=== PATIENT | male | born 1945 | race Hispanic/Latino ===

== ENCOUNTER 2021-12-06 09:24 | Inpatient (IN) | payer OTHER, MEDICARE ==
[~2021-12-06] VITALS: Ht 162.6 cm; Wt 88.5 kg
[~2021-12-06 09:24] MED LIST: ASPI-556 PO; LOSA25TA41 PO; PRAV40TA3 PO; TERA5CAP4 PO; TIOT18CA3 IH
[2021-12-06] MEDS ORDERED: IPRATROPIUM/ALBUTEROL SULFATE 3 ML SOLUTION IH SCH (09:30)
[2021-12-06] MEDS ORDERED: ACETAMINOPHEN 500 MG TABLET PO SCH (09:30)
[2021-12-06 09:59] LABS: BASOPHILS % (AUTO) 0.5 % (0.0-5.0); EOSINOPHILS % (AUTO) 1.1 % (0.0-8.0); LYMPHOCYTES % (AUTO) 11.9 % (21.0-51.0); MEAN CORPUSCULAR HEMOGLOBIN 28.4 pg (27.0-33.0); MEAN CORPUSCULAR HGB CONC 30.7 g/dL (32.0-36.0); MEAN CORPUSCULAR VOLUME 92.6 fL (79-99); MONOCYTES % (AUTO) 10.1 % (3.0-13.0); NEUTROPHILS % (AUTO) 75.7 % (40.0-77.0); PLATELET COUNT (AUTO) 202 K/uL (130-400); RED BLOOD CELL COUNT(AUTO) 4.97 MIL/uL (4.50-6.20); RED CELL DISTRIBUTION WIDTH 15.5 % (11.0-15.5); WHITE BLOOD COUNT (AUTO) 8.8 K/uL (4.8-10.8)
[2021-12-06 10:18] LABS: INFLUENZA TYPE A NEGATIVE FOR TYPE A (NEG)
[2021-12-06 10:18] LABS: POTASSIUM 4.2 mmol/L (3.5-5.1)
[2021-12-06 10:20] LABS: INFLUENZA TYPE B POSITIVE FOR TYPE B (NEG)
[2021-12-06 10:20] LABS: ALBUMIN 3.2 g/dL (3.5-5.0); BILIRUBIN,TOTAL 0.6 mg/dL (0.2-1.0); TOTAL PROTEIN, SERUM 6.8 g/dL (6.0-8.3)
[2021-12-06 10:26] LABS: INR 1.07 (0.85-1.15); PROTHROMBIN TIME 11.6 SEC (9.6-11.6)
[2021-12-06 10:28] LABS: PARTIAL THROMBOPLASTIN TIME 32.4 SEC (26.3-35.5)
[2021-12-06 10:39] LABS: ABG BASE EXCESS 4.7 mmol/L (-2.0-3.0); ABG HCO3 30.3 mmol/L (21.0-28.0); ABG OXYGEN SATURATION 94.8 % (95.0-99.0); ABG PCO2 48 mmHg (35-48)
[2021-12-06] MEDS ORDERED: DEXAMETHASONE SOD PHOSPHATE 4 MG/ML 1ML VIAL IVP SCH (11:30)
[2021-12-06] MEDS ORDERED: 0.9%NACL 1000ML 1,000 ML IV SCH (12:00)
[2021-12-06] MEDS ORDERED: ONDANSETRON 4MG INJ IVP PRN (14:30)
[2021-12-06] MEDS ORDERED: MORPHINE 2 MG SYG IVP PRN (14:30)
[2021-12-06] MEDS ORDERED: CEFTRIAXONE 1G VIAL IVP SCH (14:30)
[2021-12-06] MEDS ORDERED: ACETAMINOPHEN 325 MG TAB PO PRN (14:30)
[2021-12-06] MEDS ORDERED: ACETAMINOPHEN 650 MG SUPPOSITORY RC PRN (14:30)
[2021-12-06] MEDS: AZITHROMYCIN 500MG+NS 250ML IV SCH (14:57)
[2021-12-06] MEDS: INSULIN HUMULIN R 100 UNIT/ML 3ML SQ SCH ×2 (16:30→20:10)
[2021-12-06] MEDS: ALBUTEROL 0.083% 2.5 MG/3 ML INH IH PRN (18:38)
[2021-12-06] MEDS: OSELTAMIVIR PHOSPHATE 75 MG CAP PO SCH (20:10)
[2021-12-07 01:32] LABS: APPEARANCE,URINE Clear (CLEAR); BILIRUBIN,URINE Negative (NEGATIVE); COLOR,URINE Dark Yellow (YELLOW); GLUCOSE, URINE (UA) TRACE mg/dL (NEGATIVE); KETONES,URINE Negative (NEGATIVE); LEUKOCYTE ESTERASE ,URINE Negative (NEGATIVE); NITRATE,URINE Negative (NEGATIVE); OCCULT BLOOD,URINE Negative (NEGATIVE); PROTEIN,URINE Trace mg/dL (NEGATIVE)
[2021-12-07 03:24] LABS: BASOPHILS % (AUTO) 0.1 % (0.0-5.0); HEMATOCRIT 45.5 % (42-54); LYMPHOCYTES % (AUTO) 8.7 % (21.0-51.0); MEAN CORPUSCULAR HEMOGLOBIN 29.6 pg (27.0-33.0); MEAN CORPUSCULAR HGB CONC 30.5 g/dL (32.0-36.0); MEAN CORPUSCULAR VOLUME 96.8 fL (79-99); MONOCYTES % (AUTO) 5.6 % (3.0-13.0); NEUTROPHILS % (AUTO) 84.9 % (40.0-77.0); PLATELET COUNT (AUTO) 204 K/uL (130-400); RED CELL DISTRIBUTION WIDTH 15.1 % (11.0-15.5)
[2021-12-07 03:31] LABS: CREATININE 0.9 mg/dL (0.5-1.5)
[2021-12-07] MEDS: ZOSYN 3.375GM +NS 50ML IV SCH ×3 (03:37→18:41)
[2021-12-07 03:42] LABS: MAGNESIUM 2.4 mg/dL (1.80-2.40); PHOSPHORUS 4.4 mg/dL (2.5-4.9)
[2021-12-07] MEDS: INSULIN HUMULIN R 100 UNIT/ML 3ML SQ SCH ×3 (07:30→20:38)
[2021-12-07] MEDS: DEXAMETHASONE SOD PHOSPHATE 10MG/ML 1ML VIAL IVP SCH (09:57)
[2021-12-07] MEDS: ASPIRIN 81MG CHEW TAB PO SCH (09:58)
[2021-12-07] MEDS: ENOXAPARIN SODIUM 40 MG/0.4 ML SYRINGE SQ SCH (09:58)
[2021-12-07] MEDS: OSELTAMIVIR PHOSPHATE 75 MG CAP PO SCH ×2 (09:58→20:38)
[2021-12-07] MEDS: PANTOPRAZOLE 40 MG TAB DR PO SCH (09:58)
[2021-12-07] MEDS: AZITHROMYCIN 500MG+NS 250ML IV SCH (13:49)
[2021-12-08] MEDS: ZOSYN 3.375GM +NS 50ML IV SCH (03:46)
[2021-12-08] MEDS: ALBUTEROL 0.083% 2.5 MG/3 ML INH IH PRN (06:59)
[2021-12-08] MEDS: INSULIN HUMULIN R 100 UNIT/ML 3ML SQ SCH (07:30)
[2021-12-08] MEDS: PANTOPRAZOLE 40 MG TAB DR PO SCH (08:09)
[2021-12-08] MEDS: ENOXAPARIN SODIUM 40 MG/0.4 ML SYRINGE SQ SCH (08:09)
[2021-12-08] MEDS: ASPIRIN 81MG CHEW TAB PO SCH (08:09)
[2021-12-08] MEDS: OSELTAMIVIR PHOSPHATE 75 MG CAP PO SCH (08:09)
[2021-12-08] MEDS: DEXAMETHASONE SOD PHOSPHATE 10MG/ML 1ML VIAL IVP SCH (08:09)
[2021-12-08] MEDS ORDERED: ESOM40CA54 PO (09:36)
[2021-12-08] MEDS ORDERED: FLUT1BLS3 IH (09:36)
[2021-12-08] MEDS ORDERED: AMOX-426 PO (09:41)
[2021-12-08] MEDS ORDERED: METH4TAB3 PO (09:41)
[2021-12-08] MEDS ORDERED: IPRA3AMP24 IH (09:41)
[2021-12-08 10:54] VITALS: BP 113/57
[2021-12-08] MEDS ORDERED: PANTOPRAZOLE 40 MG TAB DR PO SCH (10:55)
[2021-12-08] MEDS ORDERED: ***HM***(Fluticasone/Umeclidin/Vilanter (Trelegy Ellipta 100-62.5- IH SCH (10:56)
[2021-12-08] MEDS ORDERED: SIMVASTATIN 20 MG TABLET PO SCH (21:00)
[2021-12-09] MEDS ORDERED: PANTOPRAZOLE 40 MG TAB DR PO SCH (07:30)
[2021-12-09] MEDS ORDERED: TERAZOSIN 5MG CAP PO SCH (09:00)
[2021-12-09] MEDS ORDERED: ASPIRIN 81 MG EC TAB PO SCH (09:00)
== END 2021-12-08 11:00 | disposition home or self-care (01) | DRG 193 ==
LOC: EDH 09:24 → EDHIP 11:57 → OBSVTOIN 11:57
PROVIDERS: ADMIT Internal Medicine; ATTEND Internal Medicine
DX: J10.08 Influenza due to other identified influenza virus with other specified pneumonia (principal); J96.01 Acute respiratory failure with hypoxia; J12.9 Viral pneumonia, unspecified; J44.1 Chronic obstructive pulmonary disease with (acute) exacerbation; Z20.822 Contact with and (suspected) exposure to COVID-19; J44.0 Chronic obstructive pulmonary disease with (acute) lower respiratory infection; E78.00 Pure hypercholesterolemia, unspecified; E78.5 Hyperlipidemia, unspecified; I10 Essential (primary) hypertension; Z87.891 Personal history of nicotine dependence; Z79.82 Long term (current) use of aspirin; Z79.4 Long term (current) use of insulin
CPT/HCPCS: 36415; 36600; 71045; 71250; 80048; 80053; 81003; 82550; 82803; 82948; 83605; 83735; 83874; 84100; 84145; 84484; 85025; 85378; 85610; 85730; 87040; 87088; 87426; 87804; 93005; 94640; 94664; 94667; 94668; 99291; G0378; J0456; J0696; J1100; J1650; J1815; J2543

== ENCOUNTER → 2022-08-21 | Outpatient (CLI) | payer OTHER, MEDICARE ==
[~2022-08-21] MED LIST changes: +AMOX-426 PO; +ESOM40CA54 PO; +FLUT1BLS3 IH; +IPRA3AMP24 IH; -LOSA25TA41 PO; +METH4TAB3 PO; -TIOT18CA3 IH
== END | disposition home or self-care (01) ==
LOC: LAB 09:31
PROVIDERS: ATTEND Family Medicine
DX: R18.8 Other ascites (principal)
CPT/HCPCS: 36415; 85210

== ENCOUNTER → 2022-08-27 | Outpatient (CLI) | payer OTHER, MEDICARE | END | disposition home or self-care (01) | LOC: RAH 10:11 | PROVIDERS: ATTEND Family Medicine | DX: R10.9 Unspecified abdominal pain (principal) | CPT/HCPCS: 76700 ==

== ENCOUNTER → 2022-08-28 | Outpatient (CLI) | payer OTHER, MEDICARE ==
[2022-08-27 12:55] LABS: INR 1.29 (0.85-1.15); PROTHROMBIN TIME 13.9 SEC (9.6-11.6)
[2022-08-27 12:56] LABS: PARTIAL THROMBOPLASTIN TIME 32.7 SEC (26.3-35.5)
[~2022-08-28] MED LIST changes: +ALBUMIN (HUMAN) 25% 200 ML IV ONE
[2022-08-28 13:41] LABS: AMYLASE,BODY FLUID 13 U/L; GLUCOSE,BODY FLUID 108 mg/dL (1-40); LIPASE,BODY FLUID 25 U/L; TRIGLYCERIDES,BODY FLUID 22 mg/dL
[2022-08-28 14:20] LABS: APPEARANCE BODY FLUID CLEAR (CLEAR); COLOR,BODY FLUID YELLOW (LT YELLOW); SPECIMENTYPE,BODY FLUID ASCITES; TOTAL VOLUME,BODY FLUID 1900 mL
[2022-08-28 14:21] LABS: BODY FLUID RBC 1197 /cu. mm.; BODY FLUID WBC 193 /cu. mm.
[2022-08-28 14:43] LABS: BF LYMPHOCYTE 20 %; BF MESOTHELIAL 60 %; BF MONOCYTE 1 %
== END | disposition home or self-care (01) ==
LOC: RAH 09:36
PROVIDERS: ATTEND Family Medicine
DX: R18.8 Other ascites (principal); I10 Essential (primary) hypertension; J44.1 Chronic obstructive pulmonary disease with (acute) exacerbation; E78.5 Hyperlipidemia, unspecified; E78.00 Pure hypercholesterolemia, unspecified; Z87.891 Personal history of nicotine dependence; Z79.82 Long term (current) use of aspirin; Z79.01 Long term (current) use of anticoagulants
CPT/HCPCS: 85610; 85730; 36415; 49083; 84478; 82945; 82150; 84157; 83690; 83615; 89051; 87071; 87205; 88305; 88112; P9046; C1729; 96365

== ENCOUNTER → 2023-01-29 | Outpatient (CLI) | payer OTHER, MEDICARE ==
[~2023-01-29] MED LIST changes: -ALBUMIN (HUMAN) 25% 200 ML IV ONE; +ALBUMIN (HUMAN) 25% 200 ML IV SCH
[2023-01-29 09:04] LABS: INR 1.01 (0.85-1.15)
[2023-01-29 09:06] LABS: PARTIAL THROMBOPLASTIN TIME 30.9 SEC (26.3-35.5)
== END | disposition home or self-care (01) ==
LOC: RAH 08:23
PROVIDERS: ATTEND Family Medicine
DX: Z01.818 Encounter for other preprocedural examination (principal); R18.8 Other ascites
CPT/HCPCS: 36415; 76705; 85610; 85730

== ENCOUNTER → 2024-08-09 | Outpatient (CLI) | payer MEDICARE ==
[~2024-08-09] MED LIST changes: -ALBUMIN (HUMAN) 25% 200 ML IV SCH; -AMOX-426 PO; -ESOM40CA54 PO; +FURO20TA4 PO; +LACT10SO95 PO; -METH4TAB3 PO; +METO-408 PO; +POLY17PO4 PO; +SIME80TA13 PO; -TERA5CAP4 PO; +doCUSate SODIUM 100 MG CAP PO
[2024-08-09 16:17] LABS: BASOPHILS # (AUTO) 0.03 K/uL (0.00-0.20); BASOPHILS % (AUTO) 0.4 % (0.0-5.0); EOSINOPHILS # (AUTO) 0.19 K/uL (0.00-0.70); EOSINOPHILS % (AUTO) 2.8 % (0.0-8.0); HEMATOCRIT 46.2 % (42-54); IMMATURE GRANULOCYTE ABSOLUTE 0.04 K/uL (0-1); LYMPHOCYTES # (AUTO) 1.1 K/uL (1.0-4.8); LYMPHOCYTES % (AUTO) 16.6 % (21.0-51.0); MEAN CORPUSCULAR HEMOGLOBIN 29.5 pg (27.0-33.0); MEAN CORPUSCULAR HGB CONC 31.2 g/dL (32.0-36.0); MEAN CORPUSCULAR VOLUME 94.7 fL (79-99); MONOCYTES # (AUTO) 0.7 K/uL (0.1-1.0); MONOCYTES % (AUTO) 9.9 % (3.0-13.0); NEUTROPHILS # (AUTO) 4.8 K/uL (1.8-7.7); NEUTROPHILS % (AUTO) 69.7 % (40.0-77.0); PLATELET COUNT (AUTO) 197 K/uL (130-400); RED BLOOD CELL COUNT(AUTO) 4.88 MIL/uL (4.50-6.20); RED CELL DISTRIBUTION WIDTH 14.5 % (11.0-15.5); WHITE BLOOD COUNT (AUTO) 6.9 K/uL (4.8-10.8)
[2024-08-09 16:37] LABS: INR 1.03 (0.85-1.15); PROTHROMBIN TIME 11.1 SEC (9.6-11.6)
[2024-08-09 16:38] LABS: PARTIAL THROMBOPLASTIN TIME 29.9 SEC (26.3-35.5)
[2024-08-09 16:42] LABS: ALBUMIN 3.3 g/dL (3.5-5.0); BILIRUBIN,TOTAL 0.4 mg/dL (0.2-1.0); CREATININE 1.2 mg/dL (0.5-1.3); TOTAL PROTEIN, SERUM 6.9 g/dL (6.0-8.3)
== END | disposition home or self-care (01) ==
LOC: LAB 15:10
PROVIDERS: ATTEND Internal Medicine Gastroenterology
DX: R14.0 Abdominal distension (gaseous) (principal); Z79.899 Other long term (current) drug therapy; E88.09 Other disorders of plasma-protein metabolism, not elsewhere classified
CPT/HCPCS: 36415; 80053; 82784; 83516; 85025; 85610; 85730; 86231; 86364

== ENCOUNTER 2024-09-13 00:12 | Emergency (ER) | payer MEDICARE ==
[~2024-09-13] VITALS: Ht 167.6 cm; Wt 88.9 kg
[2024-09-13] MEDS: ASPIRIN 81MG CHEW TAB PO ONE (00:43)
[2024-09-13 00:50] LABS: BASOPHILS # (AUTO) 0.02 K/uL (0.00-0.20); BASOPHILS % (AUTO) 0.2 % (0.0-5.0); EOSINOPHILS # (AUTO) 0.05 K/uL (0.00-0.70); EOSINOPHILS % (AUTO) 0.5 % (0.0-8.0); HEMATOCRIT 45.6 % (42-54); IMMATURE GRANULOCYTE ABSOLUTE 0.03 K/uL (0-1); LYMPHOCYTES # (AUTO) 0.4 K/uL (1.0-4.8); LYMPHOCYTES % (AUTO) 4.7 % (21.0-51.0); MEAN CORPUSCULAR HEMOGLOBIN 28.1 pg (27.0-33.0); MEAN CORPUSCULAR HGB CONC 31.1 g/dL (32.0-36.0); MEAN CORPUSCULAR VOLUME 90.3 fL (79-99); MONOCYTES # (AUTO) 0.7 K/uL (0.1-1.0); MONOCYTES % (AUTO) 7.2 % (3.0-13.0); NEUTROPHILS # (AUTO) 8.1 K/uL (1.8-7.7); NEUTROPHILS % (AUTO) 87.1 % (40.0-77.0); PLATELET COUNT (AUTO) 184 K/uL (130-400); RED BLOOD CELL COUNT(AUTO) 5.05 MIL/uL (4.50-6.20); RED CELL DISTRIBUTION WIDTH 14.5 % (11.0-15.5); WHITE BLOOD COUNT (AUTO) 9.3 K/uL (4.8-10.8)
[2024-09-13 00:51] LABS: CREATININE 1.2 mg/dL (0.5-1.3); POTASSIUM 3.9 mmol/L (3.5-5.1)
[2024-09-13 01:18] LABS: B-TYPE NATRIURETIC PEPTIDE 24 pg/mL (0-100)
[2024-09-13 01:23] LABS: WBC MORPHOLOGY CONSISTENT W/DIFF
[2024-09-13] MEDS: traMADol HCL 50 MG TABLET PO ONE (02:51)
[2024-09-13] MEDS: furoSEMIDE 40MG VIAL IV ONE (02:52)
[2024-09-13 02:59] VITALS: BP 152/65; PULSE 98; RESP 18; TEMP 98.5; O2SAT 96
[2024-09-13 03:40] LABS: APPEARANCE,URINE CLEAR (CLEAR); BILIRUBIN,URINE NEGATIVE (NEGATIVE); COLOR,URINE YELLOW (YELLOW); GLUCOSE, URINE (UA) NEGATIVE (NEGATIVE); KETONES,URINE NEGATIVE (NEGATIVE); LEUKOCYTE ESTERASE ,URINE NEGATIVE Leu/uL (NEGATIVE); NITRATE,URINE NEGATIVE (NEGATIVE); OCCULT BLOOD,URINE NEGATIVE (NEGATIVE); PROTEIN,URINE 30 mg/dL (NEGATIVE); UROBILINOGEN,URINE 0.2 mg/dL (0.2-1.0)
[2024-09-13 03:42] LABS: ADD UA MICROSCOPIC YES
[2024-09-13 03:45] LABS: MUCUS,URINE RARE LPF (None Seen); RBC,URINE 0-1 /HPF (0-1)
== END 2024-09-13 03:00 | disposition home or self-care (01) ==
LOC: EDH 00:12
DX: R00.2 Palpitations (principal); E78.5 Hyperlipidemia, unspecified; I10 Essential (primary) hypertension; J44.9 Chronic obstructive pulmonary disease, unspecified; Z79.82 Long term (current) use of aspirin; Z79.899 Other long term (current) drug therapy; Z98.890 Other specified postprocedural states
CPT/HCPCS: 99285; 96374; 71045; 82550; 84484; 80048; 83880; 85025; 81001; 36415; 93005; J1940